=== PATIENT | female | born 1965 | race Caucasian/White ===

== ENCOUNTER 2020-11-21 22:16 | Observation (INO) | payer OTHER ==
[~2020-11-21] VITALS: Ht 165.1 cm; Wt 117.9 kg
[~2020-11-21 22:16] MED LIST: ASPIRIN CHEWABL81 MG PO; FLAGYL500 MG PO; LEVAQUIN750 MG PO; LODINE CAP 300300 MG PO; PREDNISONE 50 M50 MG PO; ZOFRAN4 MG PO
[2020-11-21 22:46] LABS: HEMOGLOBIN 14.1 gm/dl (12.3-15.3); RED BLOOD COUNT 4.47 M/UL (4.00-5.10); WHITE BLOOD COUNT 5.2 K/UL (4.5-11.0)
[2020-11-21 23:05] LABS: BUN/CREATININE RATIO 21 (0-10)
[2020-11-22 07:36] LABS: RED BLOOD COUNT 4.21 M/UL (4.00-5.10); WHITE BLOOD COUNT 4.8 K/UL (4.5-11.0)
[2020-11-22 08:06] LABS: BUN/CREATININE RATIO 26 (0-10)
[2020-11-22] MEDS ORDERED: PHENERGAN 25 MG25 M1 PO (08:35)
[2020-11-22] MEDS ORDERED: PROTONIX 40 MG40 M1 PO (08:36)
[2020-11-22] MEDS ORDERED: BUMETANIDE1 MG PO (08:36)
[2020-11-22] MEDS ORDERED: GLUCOPHAGE 500500 MG PO (08:37)
[2020-11-22] MEDS ORDERED: ACID CONTROLLER20 MG PO (08:37)
[2020-11-22] MEDS ORDERED: HYDRALAZINE HCL25 MG PO (08:37)
[2020-11-22] MEDS ORDERED: CATAPRES 0.1MG0.1 MG PO (08:38)
[2020-11-22] MEDS ORDERED: LEVOTHYROXINE75 MC1 PO (08:38)
[2020-11-22] MEDS ORDERED: BUPRENORPHIN-N1 EACH SL (08:39)
[2020-11-22] MEDS ORDERED: VITAMIN D3 PO (08:40)
== END 2020-11-23 14:30 | disposition home or self-care (01) ==
LOC: ER1 22:16 → CDU 11-22 01:37 → M/S 11-22 17:16
PROVIDERS: Physician Assistant; ADMIT Internal Medicine
DX: R07.9 Chest pain, unspecified (principal); I12.9 Hypertensive chronic kidney disease with stage 1 through stage 4 chronic kidney disease, or unspecified chronic kidney disease; E11.22 Type 2 diabetes mellitus with diabetic chronic kidney disease; N18.30 Chronic kidney disease, stage 3 unspecified; E66.01 Morbid (severe) obesity due to excess calories; E78.5 Hyperlipidemia, unspecified; D69.6 Thrombocytopenia, unspecified; E87.6 Hypokalemia; Z79.899 Other long term (current) drug therapy; Z82.49 Family history of ischemic heart disease and other diseases of the circulatory system; Z79.82 Long term (current) use of aspirin; Z79.84 Long term (current) use of oral hypoglycemic drugs; Z20.822 Contact with and (suspected) exposure to COVID-19; Z68.41 Body mass index [BMI] 40.0-44.9, adult; Z98.51 Tubal ligation status
CPT/HCPCS: 71045; 80053; 80307; 81001; 82550; 82553; 82962; 83735; 83874; 83880; 84439; 84443; 84484; 85025; 87086; 93005; 96374; 99285; G0378; J1650; U0002

== ENCOUNTER → 2021-06-30 | Outpatient (CLI) | payer OTHER ==
[~2021-06-30] MED LIST changes: +ACID CONTROLLER20 MG PO; +BUMETANIDE1 MG PO; +BUPRENORPHIN-N1 EACH SL; +CATAPRES 0.1MG0.1 MG PO; +GLUCOPHAGE 500500 MG PO; +HYDRALAZINE HCL25 MG PO; +LEVOTHYROXINE75 MC1 PO; +PHENERGAN 25 MG25 M1 PO; +PROTONIX 40 MG40 M1 PO; +VITAMIN D3 PO
== END ==
LOC: KOH-I 09:30
DX: M75.121 Complete rotator cuff tear or rupture of right shoulder, not specified as traumatic (principal); M19.011 Primary osteoarthritis, right shoulder
CPT/HCPCS: 73221

== ENCOUNTER 2021-10-07 16:58 | Emergency (ER) | payer OTHER | END 2021-10-07 17:11 | disposition left against medical advice (07) | LOC: ER1 16:58 | DX: Z53.21 Procedure and treatment not carried out due to patient leaving prior to being seen by health care provider (principal) ==

== ENCOUNTER → 2022-02-05 | Outpatient (CLI) | payer OTHER ==
[~2022-02-05] MED LIST changes: +ASPIRIN EC81 MG PO; +LISINOPRIL40 MG PO; +MAGNESIUM200 MG PO; +NEURONTIN300 MG PO; +NORTRIPTYLINE H25 MG PO; +PROCARDIA XL60 MG PO; +ROBAXIN 750 MG750 MG PO
[2022-02-05 11:38] LABS: RED BLOOD COUNT 4.76 M/UL (4.00-5.10); WHITE BLOOD COUNT 5.4 K/UL (4.5-11.0)
[2022-02-05 12:08] LABS: BUN/CREATININE RATIO 13 (0-10)
== END ==
LOC: OPSV2 10:00 → EDSTATUS 10:00 → OPSV2 10:30
PROVIDERS: Orthopaedic Surgery
DX: Z01.818 Encounter for other preprocedural examination (principal); M19.011 Primary osteoarthritis, right shoulder; R94.31 Abnormal electrocardiogram [ECG] [EKG]
CPT/HCPCS: 71046; 80048; 83036; 85027; 93005

== ENCOUNTER → 2022-02-18 | Outpatient (CLI) | payer OTHER ==
[2022-02-18 15:15] LABS: BUN/CREATININE RATIO 18 (0-10)
== END ==
LOC: LAB 13:51
PROVIDERS: Orthopaedic Surgery
DX: Z01.812 Encounter for preprocedural laboratory examination (principal)
CPT/HCPCS: 36415; 80048; 86850; 86900; 86901

== ENCOUNTER → 2022-02-19 | Day surgery (SDC) | payer OTHER | END | disposition home or self-care (01) | LOC: OR 05:01 → EDSTATUS 10:00 → OR 10:00 | DX: M12.811 Other specific arthropathies, not elsewhere classified, right shoulder (principal); M75.101 Unspecified rotator cuff tear or rupture of right shoulder, not specified as traumatic; S43.431A Superior glenoid labrum lesion of right shoulder, initial encounter; X58.XXXA Exposure to other specified factors, initial encounter; I11.9 Hypertensive heart disease without heart failure; K21.9 Gastro-esophageal reflux disease without esophagitis; E11.9 Type 2 diabetes mellitus without complications; E03.9 Hypothyroidism, unspecified; Z88.1 Allergy status to other antibiotic agents; Z91.040 Latex allergy status; Z79.82 Long term (current) use of aspirin; Z79.84 Long term (current) use of oral hypoglycemic drugs; Z79.899 Other long term (current) drug therapy | CPT/HCPCS: 73020; 82962; C1713; C1776; J0690; J1100; J1170; J2001; J2250; J2405; J2704; J2795; J3010 ==